=== PATIENT | female | born 1980 | race Caucasian/White ===

== ENCOUNTER 2016-09-29 14:31 | Day surgery (SDC) | payer MEDICAID ==
[~2016-09-29] VITALS: Ht 172.7 cm; Wt 56.7 kg
[~2016-09-29 14:31] MED LIST: ALBUTEROL2 PUFFS/17 IN; ALBUTEROL200 PUFFS/ IH; APAP/BUTALBITAL1 TA1 PO; BACTRIM DS 8001 TA1 PO; BACTRIM DS 8001 TAB PO; CIPRO 500MG TA500 MG PO; CLARITIN10 MG OR; CLINDAMYCIN HC300 MG PO; CLONAZEPAM0.5 M1 PO; DARVOCET-N 1001 EACH PO; DOXYCYCLINE MO100 MG PO; ESTRACE0.5 MG OR; FLEXERIL10 MG PO; IBU600 MG PO; IBUPROFEN800 MG PO; INDOCIN25 M2 PO; KEFLEX 500MG.500 MG PO; LEVAQUIN750 MG PO; LEXAPRO 10 MG T10 MG PO; LORTAB 5/500 501 TAB PO; MACRODANTIN100 MG PO; MEDROL 4MG. DOSE4 MG PO; MEGACE LIQUI40 MG/ML PO; MOBIC15 MG PO; NAPROSYN 500MG500 MG PO; NOMEDS; NORCO 325 MG-51 TAB PO; PERCOGESIC EXTR1 TAB PO; PHENERGAN 25MG.25 M1 PO; PHENERGAN VC +120 ML PO; PREDNISONE 20MG20 MG PO; PREDNISONE50 MG PO; PROVENTIL0.09 MG/A1 IH; PYRIDIUM 200MG200 MG PO; SEROQUEL25 MG PO; SULFAMETHOXAZOL1 TA6 PO; TESSALON PERLE100 MG PO; TRAMADOL 50MG T1 PAK PO; TRAMADOL 50MG T50 M1 PO; TRAMADOL 50MG T50 MG PO; ULTRAM 50 MG TA50 MG PO; VALIUM 2MG TABLE2 MG PO; VIBRAMYCIN 100100 MG PO; VIBRAMYCIN HYC100 MG PO; VICODIN 5/500 T1 TAB PO; VOLTAREN75 MG PO; XANAX 0.25MG0.25 MG PO; ZITHROMAX 250M250 MG PO; ZITHROMAX Z PA250 MG PO
[2016-09-29 14:42] VITALS: BP 149/91
[2016-09-29 14:57] VITALS: BP 149/91
[2016-09-29 14:58] VITALS: BP 166/101
--- NOTE | 2016-09-29 15:02 | Procedure Note ---
Procedure detail Date of procedure: 09/29/16 Anesthesiologist: Jalli hale CRNA Complications: None Pre-procedure diagnosis: Bilateral sacroiliitis. Post-procedure diagnosis: Same. Indications for procedure: This patient's a pleasant 36-year-old white female that comes our pain clinic today for initial consultation regarding chronic bilateral buttock pain. RIGHT greater than LEFT. Patient states RIGHT side pain goes down the leg to the knee. Patient has extreme point tenderness over bilateral SI joints. I discussed in detail with the patient regarding SI joint injections. Patient's lumbar MRI is essentially negative. Patient describes the pain as constant, dull, sharp, stabbing. She rates the pain 8/10. Patient presents today for bilateral SI joint injection. Procedure detail: Informed consent was obtained and the risks and benefits of the procedure were explained to the patient. The patient was taken to the procedure room and noninvasive monitors were placed including a noninvasive blood pressure cuff and pulse oximeter. The patient was placed prone on the procedure table. Both hips were cleansed using Betadine as a cleansing solution. C-arm fluoroscopy was used to view the right sacroiliac joint. The skin and subcutaneous tissues were anesthetized using lidocaine 1.5% and a 25-gauge needle. After this, a 22-gauge spinal needle was inserted under fluoroscopic guidance into the inferior aspect of the right sacroiliac joint. Omnipaque dye was injected and good spread was seen throughout the joint. After this, approximately 5 mL of bupivacaine, 0.25% and Depo-Medrol, 40 mg was incrementally injected into the right sacroiliac joint. We then moved to the left sacroiliac joint. The skin and subcutaneous tissues were anesthetized using lidocaine 1.5% and a 25-gauge needle. After this, a 22- gauge spinal needle was inserted under fluoroscopic guidance into the inferior aspect of the left sacroiliac joint. Omnipaque dye was injected and good spread was seen throughout the joint. After this, approximately 5 mL of bupivacaine, 0.25% and Depo-Medrol, 40 mg was incrementally injected into the left sacroiliac joint. The patient tolerated the procedure well with no complications. The patient was observed in the Pain Clinic and then was discharged home neurologically intact. Plan and disposition: Patient was evaluated 10 minutes post procedure. Patient reports 90 percent improvement terms of her bilateral hip pain. She'll continue to follow up with us pain clinic for further evaluation. at [id number]
[2016-09-29 15:10] VITALS: BP 128/86
== END 2016-09-29 15:10 | disposition home or self-care (01) ==
LOC: PM 14:31
PROC: 3E0U33Z Introduction of Anti-inflammatory into Joints, Percutaneous Approach (ICD-10-PCS; principal; 2016-09-29)
PROC: 3E0U3BZ Introduction of Anesthetic Agent into Joints, Percutaneous Approach (ICD-10-PCS; 2016-09-29)
DX: M46.1 Sacroiliitis, not elsewhere classified (principal)
CPT/HCPCS: G0260; J1040